=== PATIENT | female | born 2005 | race Caucasian/White ===

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

== ENCOUNTER 2024-02-10 14:42 | Emergency (ER) | payer OTHER ==
[~2024-02-10] VITALS: Ht 170.2 cm; Wt 59.0 kg
[2024-02-10 15:03] VITALS: BP 118/72; PULSE 75; RESP 18; TEMP 98; O2SAT 99
[2024-02-10 17:01] VITALS: BP 121/74; PULSE 77; RESP 18; TEMP 98.1; O2SAT 99
[2024-02-10] MEDS: ONDANSETRON 4 MG TAB PO ONE (17:01)
[2024-02-10] MEDS ORDERED: BACI-418 TP (17:24)
[2024-02-10] MEDS ORDERED: ONDA-188 SL (17:24)
== END 2024-02-10 17:30 | disposition home or self-care (01) ==
LOC: MED 14:42
DX: S06.0X0A Concussion without loss of consciousness, initial encounter (principal); S60.222A Contusion of left hand, initial encounter; S60.221A Contusion of right hand, initial encounter; S00.81XA Abrasion of other part of head, initial encounter; R11.0 Nausea; Z79.899 Other long term (current) drug therapy; Y04.2XXA Assault by strike against or bumped into by another person, initial encounter; Y92.009 Unspecified place in unspecified non-institutional (private) residence as the place of occurrence of the external cause; Y93.89 Activity, other specified; Y99.8 Other external cause status
CPT/HCPCS: 73130; 81025; 99283; Q0162